=== PATIENT | female | born 1985 | race American Indian/Alaskan Native ===

== ENCOUNTER 2018-07-27 12:44 | Emergency (ER) | payer BC, OTHER ==
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
[2018-07-27 12:51] VITALS: BP 123/75
--- NOTE | 2018-07-27 13:17 | XRay Report ---
CERVICAL SPINE RADIOGRAPHS INDICATION: Cervical pain. COMPARISON: None similar at this institution. FINDINGS: AP, lateral and open-mouth views of the cervical spine, 3 images demonstrate obscured dens and lateral masses due to overlying structures. Intact craniocervical articulation on the lateral view with normal prevertebral soft tissues and airway. Normal vertebral body stature and disc heights, though straightening/slight reversal of usual cervical lordosis noted. Clear visualized lung apices. CONCLUSION: Cervical spine straightening noted without other acute significant radiographic abnormality on this somewhat limited exam, as described. Please correlate. Thank you for the opportunity to participate in this patient's care.
[2018-07-27] MEDS ORDERED: NORCO 5/325 PO ONE (13:31)
[2018-07-27] MEDS ORDERED: FLEXERIL PO ONE (13:31)
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
[2018-07-27] MEDS ORDERED: DELTASONE PO NR (14:00)
== END 2018-07-27 13:59 | disposition home or self-care (01) ==
LOC: ED 12:44
DX: M62.838 Other muscle spasm (principal); V49.49XA Driver injured in collision with other motor vehicles in traffic accident, initial encounter; Y93.89 Activity, other specified; Y92.89 Other specified places as the place of occurrence of the external cause; Y99.8 Other external cause status
CPT/HCPCS: 72040